=== PATIENT | female | born 1995 | race Caucasian/White ===

== ENCOUNTER 2018-12-21 21:11 | Emergency (ER) | payer OTHER, MEDICAID, SELFPAY ==
[2018-12-21 21:15] VITALS: BP 113/60; PULSE 84; RESP 17; TEMP 36.6; O2SAT 100; BMI 19.0
--- NOTE | 2018-12-21 22:17 | DI.RAD.S_ITS ---
PROCEDURE: XR FOOT LT MIN 3V INDICATIONS: foot pain, no obvious injury TECHNIQUE: 3 views of the foot were acquired. COMPARISON: None. FINDINGS: Bones: No fractures or dislocations. No suspicious bony lesions. Soft tissues: No tibiotalar joint effusion. Achilles tendon appears normal. IMPRESSION: No gross abnormality is seen in left foot. Dictated by: Jose Perez M.D. on 12/22/2018 at 8:11 Approved by: Jose Perez M.D. on 12/22/2018 at 8:14
[2018-12-21 22:27] VITALS: PULSE 80
--- NOTE | 2018-12-21 22:30 | PC.NURSE ---
Pt states intermittent sharp left foot pain to bottom of foot for past two weeks and worse since yesterday. Denies injury to foot and reports difficulty walking at work today due to pain. Pt ambulated to room upon arrival to ED. CMS intact with no acute abnormalities noted.
[2018-12-21 23:04] VITALS: BP 122/62; PULSE 80; RESP 15; O2SAT 98
--- NOTE | 2018-12-22 01:11 | ED_ITS ---
HPI - Extremity Problem General Chief complaint: Extremity Problem,Nontraumatic Stated complaint: LEFT FOOT ISSUES Time Seen by Provider: 12/21/18 22:06 Source: patient and family Mode of arrival: ambulatory Limitations: no limitations History of Present Illness HPI Narrative: 23-year-old female, otherwise healthy nonsmoker presents with severe sharp and stabbing left foot pain in the absence of obvious injury. She states that is much worse when she ambulates and improves with rest. She denies any known injury or possibility of foreign body. Her pain is sharp and stabbing and underlying her 2nd and 3rd toes. She has not noticed any redness, swelling or red streaks. MD Complaint: extremity pain Onset (ago): hour(s) Pain Consistency: intermittent Location: left Quality: stabbing and aching Radiation: none Relieving factors: rest Exacerbating factors: weight bearing, walking and palpation Review of Systems Constitutional Denies chills, Denies fever(s), Denies lethargy and Denies weakness Eyes Denies change in vision, Denies eye discharge, Denies irritation and Denies loss of vision ENT Ears, Nose, Mouth, and Throat: Denies change in voice, Denies neck pain and Denies sore throat Cardiovascular Denies chest pain, Denies irregular heart rhythm, Denies lightheadedness, Denies palpitations, Denies dyspnea, Denies dyspnea on exertion and Denies orthopnea Respiratory Denies cough, Denies dyspnea, Denies dyspnea on exertion and Denies wheezing Gastrointestinal Gastrointestinal: Denies abdominal pain, Denies change in bowel habits, Denies diarrhea, Denies nausea and Denies vomiting Genitourinary Denies hematuria, Denies flank pain, Denies urinary incontinence and Denies urinary urgency Musculoskeletal Reports limited range of motion and Denies neck pain Integumentary/Breasts Denies pruritus, Denies erythema, Denies rash and Denies wounds Neurologic Denies confusion, Denies loss of vision and Denies weakness Psychiatric Denies anxiety, Denies confusion, Denies depression, Denies homicidal ideation and Denies suicidal ideation Endocrine Denies palpitations Hematologic/Lymphatic Denies easy bruising Allergic/Immunologic Denies wheezing PFSH Social History Smoking Status: Current every day smoker Social History Smoking Status: Current every day smoker Exam Narrative Exam Narrative: GEN: AOx3 and in mild distress EYES: Pupils are equal, round, and reactive to light and accommodation. Extraoccular muscles are intact bilaterally. There is no subconjunctival hemorrhage or exudate. CHEST: Lungs are clear to auscultation bilaterally and free of wheezes, rales, or rhonchi. Heart rate is regular rhythm, there are no murmurs, clicks, rubs, or gallops. There is no chest wall tenderness. ABD: Abdomen is soft and nontender. There is no guarding or rebound. Bowel sounds are normal in all 4 quadrants. There is no mass or organomegaly. EXT: Tender to palpation of the soft tissue underlying the metatarsal phalangeal joint of her 2nd and 3rd toes on her left foot. There is no swelling, redness, abrasion, laceration or suspicion of foreign body. She has full range of motion of her toes and good sensation and cap refill. Full painless ROM of all extremities with no loss of sensation or strength. SKIN: Warm, pink, and dry. No erythema or rash Initial Vital Signs Initial Vital Signs: Vital Signs Temperature 98 F 12/21/18 21:15 Pulse Rate 84 12/21/18 21:15 Respiratory Rate 17 12/21/18 21:15 Blood Pressure 113/60 12/21/18 21:15 Pulse Oximetry 100 12/21/18 21:15 Course Orders Ordered: ED Orders 12/21/18 22:17 XR foot LT min 3V Stat Vital Signs - 8 hr 12/21/18 21:15 12/21/18 22:27 12/21/18 23:04 Temperature 98 F Pulse Rate 84 80 Pulse Rate [Left Dorsalis Pedis] 80 Respiratory Rate 17 15 Blood Pressure 113/60 Blood Pressure [Right Arm] 122/62 Pulse Oximetry 100 98 MDM - Extremity (Nontraumatic) Imaging Data Foot Xray: Attestation: I personally reviewed and interpreted this imaging study as follows: My impression: No fx or FB MDM Narrative Medical decision making narrative: considered infection, but thought less likely given the lack of erythema, swelling, warmth. Foreign body considered but thought less likely given no significant history or exam findings consistent with this. Patient offered fracture shoe, but refused despite Discharge Plan Departure Patient Disposition: Home Clinical Impression: Acute foot pain Qualifiers: Laterality: left Qualified Code(s): M79.672 - Pain in left foot Discharge Date/Time: 12/21/18 23:51 Interventions: ED Discharge Assessment Last Done: 12/21/18 23:51 Instructions: DI for Foot Pain Activity Restrictions/Additional Instructions: *You have been diagnosed with [ acute left foot pain ] *What to do: *Take medications as directed: motrin around the clock for pain and anti- inflammatory reasons *Follow up with your primary care provider in 2-3 days, call for an appointment. Let them know you were seen in the Emergency Department and that we ask that you be seen in follow up *Return to ER if you should have any new, worsening or concerning symptoms Referrals: Juan Manuel Tejeda MD [Physician] - Bud Gaxiola MD [Physician] - Ayaka Grady DO [Physician] -
== END 2018-12-21 23:51 | disposition home or self-care (01) ==
PROVIDERS: Emergency Provider Emergency Medicine
DX: M79.672 Pain in left foot (principal)
CPT/HCPCS: 73630; 99282; 99283